=== PATIENT | female | born 1955 | race Caucasian/White ===

== ENCOUNTER 2022-08-17 11:20 | Emergency (ER) | payer MEDICARE ==
[2022-08-17 12:06] LABS: Bilirubin Negative (Negative); Blood, Urine Large (Negative); Clarity Clear (Clear); Glucose, Urine (Dipstick) Negative (Negative); Ketone, Urine Negative (Negative); Leukocyte Moderate (Negative); Nitrite Negative (Negative); Protein, Urine (Dipstick) 30 mg/dL (Neg-Trace); Urobilinogen 0.2 mg/dL (Less than 2)
[2022-08-17 12:13] LABS: Bacteria/HPF 1+ HPF (None Seen); Squamous Epithelial 0-3 HPF (0-3)
[2022-08-17] MEDS ORDERED: Sulfameth/Trimethoprim DS 800-160mg TAB ONE (12:37)
== END 2022-08-17 12:42 | disposition home or self-care (01) ==
LOC: BURERS 11:20
DX: N39.0 Urinary tract infection, site not specified (principal); E03.9 Hypothyroidism, unspecified; E78.00 Pure hypercholesterolemia, unspecified; I10 Essential (primary) hypertension
CPT/HCPCS: 81003; 81015; 87086; 99283

== ENCOUNTER 2022-10-19 11:05 | Emergency (ER) | payer MEDICARE, OTHER ==
[2022-10-19 11:35] LABS: Bilirubin Negative (Negative); Blood, Urine Trace (Negative); Clarity Clear (Clear); Glucose, Urine (Dipstick) Negative (Negative); Ketone, Urine Negative (Negative); Leukocyte Negative (Negative); Nitrite Negative (Negative); Protein, Urine (Dipstick) Negative (Neg-Trace); Urobilinogen 0.2 mg/dL (Less than 2)
[2022-10-19 11:44] LABS: Bacteria/HPF None Seen HPF (None Seen); RBC/HPF 0-3 HPF (0-3); Squamous Epithelial 0-3 HPF (0-3); WBC/HPF None Seen HPF (0-3)
== END 2022-10-19 12:20 | disposition home or self-care (01) ==
LOC: BURERS 11:05
DX: B34.9 Viral infection, unspecified (principal); E03.9 Hypothyroidism, unspecified; E78.5 Hyperlipidemia, unspecified; I10 Essential (primary) hypertension; Z79.899 Other long term (current) drug therapy
CPT/HCPCS: 81003; 81015; 87081; 87430; 99283

== ENCOUNTER 2022-12-06 11:10 | Emergency (ER) | payer MEDICARE, OTHER ==
[2022-12-06] MEDS ORDERED: Ipratropium/Albuterol 3 ML NEB ONE (11:50)
== END 2022-12-06 13:12 | disposition home or self-care (01) ==
LOC: BURERS 11:10
DX: J06.9 Acute upper respiratory infection, unspecified (principal); E03.9 Hypothyroidism, unspecified; E78.00 Pure hypercholesterolemia, unspecified; I10 Essential (primary) hypertension; Z79.899 Other long term (current) drug therapy
CPT/HCPCS: 71045; 87804; J7620